=== PATIENT | male | born 1945 | race Caucasian/White ===

== ENCOUNTER 2020-09-22 21:50 | Emergency (ER) | payer OTHER ==
[2020-09-22] MEDS ORDERED: ACETAMINOPHEN TAB 500 MG TAB PO STA (22:02)
[2020-09-22] MEDS ORDERED: TOPICAL SKIN ADHESIVE 1 EACH AMP TOPICAL ONE (22:02)
[2020-09-22 22:05] VITALS: RESP 18; TEMP 98.4
--- NOTE | 2020-09-22 22:11 | ED ---
Fall HPI - General Stated Complaint: Fall Time Seen by Provider: 09/22/20 21:52 - History of Present Illness Initial Comments: 75 year-old male patient presents via EMS after experiencing a fall. Patient was up a ladder with his feet about three feet off of the ground using a chainsaw to cut down a tree. States that the chain saw got stuck and when the tree fell he fell with it. States he hit his face on the cement. Denies any loss of consciousness. Reports mild headache and some neck pain. Denies any blurred vision, double vision, nausea, or dizziness. Denies any radiation of pain down his arms. Denies numbness or tingling to the hands or arms. Reports some scratches to his legs. Denies any leg pain. States tetanus is up to date within the last couple of years. Denies any blood thinning medications. Patient denies any back pain, chest pain, shortness of breath, weakness, abdominal pain, nausea, vomiting, or difficulties with bowel movements or urination. - Related Data Previous Rx's Medication Instructions Recorded Amoxic-Pot Clav 875-125Mg 1 tab PO Q12HR #14 tablet 09/22/20 [Augmentin 875-125] Allergies Allergy/AdvReac Type Severity Reaction Status Date / Time No Known Allergies Allergy Verified 09/22/20 22:26 Review of Systems ROS Statement: Those systems with pertinent positive or pertinent negative responses have been documented in the HPI. ROS Other: All systems not noted in ROS Statement are negative. General Exam General appearance: alert, in no apparent distress, other (This is a well- developed, well-nourished adult male patient in no acute distress. Vital signs upon presentation temperature 98.4F, pulse 78, respirations 18, blood pressure 180/89, pulse ox 98% on room air.) Head exam: Present: other (Mid forehead abrasion soft tissue swelling) Eye exam: Present: normal appearance, PERRL, EOMI. Absent: scleral icterus, conjunctival injection, periorbital swelling ENT exam: Present: normal oropharynx, mucous membranes moist, other (There is a flap laceration noted to the nasal bridge, soft tissue swelling. Dried blood noted to the left nare. No evidence for septal hematoma.) Neck exam: Present: normal inspection, other (There is tenderness noted over the left lower cervical spine posteriorly. No bony step-off or deformity noted.). Absent: tenderness, meningismus, full ROM (C-collar in place), lymphadenopathy Respiratory exam: Present: normal lung sounds bilaterally. Absent: respiratory distress, wheezes, rales, rhonchi, stridor Cardiovascular Exam: Present: regular rate, normal rhythm, normal heart sounds. Absent: systolic murmur, diastolic murmur, rubs, gallop, clicks GI/Abdominal exam: Present: soft, normal bowel sounds. Absent: distended, tenderness, guarding, rebound, rigid Extremities exam: Present: full ROM, normal capillary refill, other (Long linear abrasion noted to the left medial lower leg. No active bleeding. Abrasion noted to the lateral right lower leg. No active bleeding. Skin is otherwise pink, warm, dry. Cap refill less than 3 seconds. Pedal posttibial pulses are 2+.). Absent: normal inspection, tenderness, pedal edema, joint swelling, calf tenderness Back exam: Present: normal inspection, other (Nontender, no step-off, no deformity to firm midline palpation of the thoracic and lumbar vertebrae. Full range of motion without pain or limitation.). Absent: vertebral tenderness Neurological exam: Present: alert, oriented X3, CN II-XII intact Psychiatric exam: Present: normal affect, normal mood Skin exam: Present: warm, dry, intact, normal color. Absent: rash Course Vital Signs 09/22/20 09/22/20 09/22/20 21:57 22:45 23:46 Temperature 98.4 F Pulse Rate 78 82 Respiratory 18 18 Rate Blood Pressure 180/89 167/77 153/76 O2 Sat by Pulse 98 98 Oximetry Procedures - Laceration Laceration #1 Consent Obtained: verbal consent Indication: laceration Site: face (Nasal) Size (cm): 3 Description: flap Depth: simple, single layer Type of Sutures: other (exofin) Patient Tolerated Procedure: well, no complications Medical Decision Making - Medical Decision Making 75-year-old male patient presents to the emergency department today for a of facial injuries after falling from a ladder. Physical examination did reveal soft tissue abrasion and swelling to the forehead, flap laceration to the nasal bridge. Also had tenderness in the left lateral neck. Long linear abrasion noted to the left medial lower leg. Abrasion noted to the lateral right lateral lower leg. Neurovascular status intact in all extremities. He is neurologically intact with no focal deficits. Tetanus shot is up-to-date. CT brain and C-spine negative. CT facial bones did reveal right-sided nasal bone fracture. Thoracic spine x-ray showed compression fracture of T11, patient has no point tenderness or complaints of pain in this location so this is most likely old. We did start Augmentin for prophylaxis for open nasal bone fracture. He will be discharged to follow up with ENT specialty for further evaluation in 1-2 days. Return parameters were discussed in detail. He verbalizes understanding and agrees with this plan. I attending is Dr. Crabtree. - Radiology Data Radiology results: report reviewed, image reviewed Thoracic spine x-rays obtained. Report reviewed in its entirety. Impression by Dr. Moore shows mild spurring. Mild loss of height at T11 which is probably new compared to old chest x-ray from 03/12/2012. Consistent with osteoporotic compression fracture. Uncertain age. CT brain and C-spine without contrast is obtained. Report is reviewed in its entirety. Impression by Dr. Moore shows right frontal scalp hematoma. No acute intracranial abnormality. Cerebral atrophy. Mild degenerative changes in the cervical spine. No fracture. CT facial bones without contrast was obtained. Report was reviewed in its entirety. Impression by Dr. Moore shows right frontal scalp hematoma. Right-sided fracture of the nasal bone. Disposition Clinical Impression: Nasal bone fracture, Scalp hematoma, Abrasion, left lower leg, initial encounter Disposition: HOME SELF-CARE Condition: Good Instructions (If sedation given, give patient instructions): Nasal Fracture (ED), Head Injury (ED), Abrasion (ED), Hematoma (ED) Additional Instructions: Keep wounds clean and dry. Take antibiotic as directed. Follow-up with ENT specialist for further evaluation as soon as possible. Return to the emergency department for any new, worsening, or concerning symptoms. Prescriptions: Amoxic-Pot Clav 875-125Mg [Augmentin 875-125] 1 tab PO Q12HR #14 tablet Is patient prescribed a controlled substance at d/c from ED?: No Referrals: [facility],Clinic [Primary Care Provider] - 1-2 days Time of Disposition: 23:27
--- NOTE | 2020-09-22 22:41 | XR ---
EXAMINATION TYPE: XR thoracic spine complete DATE OF EXAM: 09/22/2020 COMPARISON: NONE HISTORY: Back pain TECHNIQUE: 3 views FINDINGS: Vertebra have normal alignment. Posterior elements are intact. There is no paraspinal mass. There is some biconcave deformity of T11 vertebra.. There is multilevel mild anterior spurring in th e lower thoracic spine. IMPRESSION: Mild spurring. Mild loss of height of T11 which is probably new compared to old chest x-r ay of 05/02/2011 and consistent with osteoporotic compression fracture. Uncertain age.
--- NOTE | 2020-09-22 23:09 | CT ---
EXAMINATION TYPE: CT brain georgina frederick DATE OF EXAM: 09/22/2020 COMPARISON: HISTORY: Fall from ladder with facial injuries with lacerations. CT DLP: 1087.4 mGycm Automated exposure control for dose reduction was used. Exam performed with no contrast. There is right frontal scalp hematoma measuring up to 1 cm in thickness. There is cerebral atrophy. T here is no mass effect nor midline shift. There is no sign of intracranial hemorrhage. The cervical vertebra have normal alignment. Disc spaces are fairly normal. I see no compression frac ture. The posterior elements are intact. Facet joints are intact. There is minimal spurring anteriorl y at C5-6 and C6-7. IMPRESSION: Right frontal scalp hematoma. No acute intracranial abnormality. Cerebral atrophy. Minor degenerative changes in the cervical spine. No fracture.
--- NOTE | 2020-09-22 23:14 | CT ---
EXAMINATION TYPE: CT facial bones wo con DATE OF EXAM: 09/22/2020 COMPARISON: None HISTORY: Fall from ladder with facial injuries with lacerations. CT DLP: 1087.4 mGycm Automated exposure control for dose reduction was used. Images obtained from the bottom of the mandible to the top of the frontal sinuses without contrast. The mandibular ring appears intact. Mandibular condyles appear normal. Zygomatic arches appear janene l. Maxilla is intact. There is nondisplaced fracture of the right side of the nasal bone. Orbital mar gins are intact. There is no evidence of blowout orbital blowout fracture. There is no retro-orbital mass. There is fairly normal aeration of the paranasal sinuses. The maxilla is intact. There is right frontal scalp soft tissue swelling with hematoma measuring up to 10 mm in thickness. T he frontal bone appears intact. IMPRESSION: Right frontal scalp hematoma. Right side fracture of the nasal bone.
[2020-09-22] MEDS ORDERED: BACITRACIN OINT 1 EACH PACKET TOPICAL ONE (23:27)
[2020-09-22] MEDS ORDERED: AMOXIC-POT CLAV 875MG STARTER PACK 2 TAB BTL PO STA (23:27)
[2020-09-22 23:48] VITALS: BP 153/76; PULSE 82
== END 2020-09-22 23:48 | disposition home or self-care (01) ==
LOC: EC 21:50
DX: S02.2XXA Fracture of nasal bones, initial encounter for closed fracture (principal); S00.03XA Contusion of scalp, initial encounter; S80.812A Abrasion, left lower leg, initial encounter; W11.XXXA Fall on and from ladder, initial encounter; Y93.89 Activity, other specified; Y92.009 Unspecified place in unspecified non-institutional (private) residence as the place of occurrence of the external cause
CPT/HCPCS: 12013; 70450; 70486; 72072; 72125; 99284

== ENCOUNTER → 2023-06-18 | Outpatient (CLI) | payer OTHER ==
--- NOTE | 2023-06-18 13:52 | US ---
EXAMINATION TYPE: US carotid duplex BILAT DATE OF EXAM: 06/18/2023 COMPARISON: NONE CLINICAL INDICATION: Male, 78 years old with history of I63.239 CEREB INFRC DUE TO UNSP OCCLS OR STEN OS OF; TECHNIQUE: Carotid duplex ultrasound examination. Indirect Doppler criteria was utilized. FINDINGS: EXAM MEASUREMENTS: RIGHT: Peak Systolic Velocity (PSV) cm/sec ----- Right CCA: 59.9 ----- Right ICA: 170.4 ----- Right ECA: 76.8 ICA/CCA ratio: 2.8 RIGHT: End Diastole cm/sec ----- Right CCA: 9.7 ----- Right ICA: 36.0 ----- Right ECA: 10.2 LEFT: Peak Systolic Velocity (PSV) cm/sec ----- Left CCA: 74.3 ----- Left ICA: 108.4 ----- Left ECA: 77.7 ICA/CCA ratio: 1.5 LEFT: End Diastole cm/sec ----- Left CCA: 11.7 ----- Left ICA: 24.4 ----- Left ECA: 0.0 VERTEBRALS (direction of flow): Right Vertebral: Antegrade Left Vertebral: Antegrade Rhythm: Normal Bight Maker notes: Right ICA/CCA ratio 2.8 IMPRESSION: Measurements suggest a moderate (50-69%) proximal right ICA stenosis. Criteria for Assigning % of Stenosis / Diameter reduction (Estimation based on the indirect measurements of the internal carotid artery velocities (ICA PSV). 1. Normal (no stenosis)=ICA PSV < 125 cm/s: ratio < 2.0: ICA EDV<40 cm/s. 2. Less than 50% stenosis=ICA PSV < 125 cm/s: ratio < 2.0: ICA EDV<40 cm/s. 3. 50 to 69% stenosis=ICA PSV of 125 to 230 cm/s: ration 2.0 ? 4.0: ICA EDV 40-100 cm/s. 4. Greater than 70% stenosis to near occlusion= ICA PSV > 230 cm/s: ratio > 4.0: ICA EDV > 100 cm/s. 5. Near occlusion= ICA PSV velocities may be low or undetectable: variable ratio and ICA EDV. 6. Total occlusion=unable to detect flow.
== END | disposition home or self-care (01) ==
LOC: RADUSWWP 12:21
PROVIDERS: ATTEND Family Medicine
DX: I63.239 Cerebral infarction due to unspecified occlusion or stenosis of unspecified carotid artery (principal)
CPT/HCPCS: 93880

== ENCOUNTER → 2023-11-11 | Outpatient (CLI) | payer OTHER | END | disposition home or self-care (01) | LOC: RADECHMAIN 15:00 | PROVIDERS: ATTEND Family Medicine | DX: I35.0 Nonrheumatic aortic (valve) stenosis (principal) | CPT/HCPCS: 93306 ==